=== PATIENT | male | born 2000 | race Caucasian/White ===

== ENCOUNTER 2024-09-27 13:31 | Emergency (ER) | payer OTHER ==
[~2024-09-27] VITALS: Ht 177.8 cm; Wt 90.9 kg
[2024-09-27 13:36] VITALS: TEMP 98.5
[2024-09-27 14:06] VITALS: BP 127/83; PULSE 87; RESP 16; O2SAT 99
[2024-09-27] MEDS: PERTUSS(ACELL),DIPH,TET/PF 0.5 ML SYRINGE [ADULT] IM. ONE (14:49)
[2024-09-27] MEDS: LIDOCAINE 1% 10 ML VIAL SQ ONE (14:49)
[2024-09-27] MEDS ORDERED: CEPH-558 PO (15:08)
== END 2024-09-27 15:40 | disposition home or self-care (01) ==
LOC: EMS 13:31
DX: S61.411A Laceration without foreign body of right hand, initial encounter (principal); W22.8XXA Striking against or struck by other objects, initial encounter; Y93.89 Activity, other specified; Y92.89 Other specified places as the place of occurrence of the external cause; Y99.0 Civilian activity done for income or pay
CPT/HCPCS: 99283; 90715; 90471; 12001; J3490